=== PATIENT | female | born 1985 | race Caucasian/White ===

== ENCOUNTER 2025-08-21 14:47 | Outpatient (CLI) | payer OTHER | END 2025-08-21 14:48 | disposition home or self-care (01) | LOC: BICRAD 14:47 | PROVIDERS: ATTEND Nurse Practitioner Family | DX: M54.50 Low back pain, unspecified (principal); M47.816 Spondylosis without myelopathy or radiculopathy, lumbar region | CPT/HCPCS: 72100 ==